=== PATIENT | female | born 1940 | race Caucasian/White ===

== ENCOUNTER → 2021-05-20 16:48 | Outpatient (BNVA) | payer MEDICARE, SELFPAY | PROVIDERS: Visit Provider Family Medicine | DX: Z20.822 Contact with and (suspected) exposure to COVID-19 (principal) | CPT/HCPCS: 87635 ==

== ENCOUNTER → 2022-12-08 16:50 | Outpatient (BNVA) | payer MEDICARE, SELFPAY | PROVIDERS: Visit Provider Nurse Practitioner Family | DX: I10 Essential (primary) hypertension (principal); E53.8 Deficiency of other specified B group vitamins; E55.9 Vitamin D deficiency, unspecified; M71.22 Synovial cyst of popliteal space [Baker], left knee; Z86.39 Personal history of other endocrine, nutritional and metabolic disease; F41.8 Other specified anxiety disorders; Z76.89 Persons encountering health services in other specified circumstances; Z68.28 Body mass index [BMI] 28.0-28.9, adult; Z71.89 Other specified counseling | CPT/HCPCS: 80053; 80061; 82306; 82607; 83036; 84443; 85025 ==

== ENCOUNTER → 2023-05-11 13:32 | Outpatient (BNVA) | payer MEDICARE, SELFPAY | PROVIDERS: PCP Nurse Practitioner Family; Visit Provider Nurse Practitioner Family | DX: N23 Unspecified renal colic (principal) | CPT/HCPCS: 81003 ==

== ENCOUNTER → 2023-08-01 15:00 | Outpatient (BNVA) | payer MEDICARE, SELFPAY | PROVIDERS: PCP Nurse Practitioner Family; Visit Provider Nurse Practitioner Family | DX: I10 Essential (primary) hypertension (principal); E55.9 Vitamin D deficiency, unspecified; E53.8 Deficiency of other specified B group vitamins; Z87.448 Personal history of other diseases of urinary system; L03.90 Cellulitis, unspecified; F41.8 Other specified anxiety disorders | CPT/HCPCS: 80053; 80061; 81000; 82306; 82607; 85025 ==

== ENCOUNTER → 2023-11-29 10:15 | Outpatient (BNVA) | payer MEDICARE, SELFPAY | PROVIDERS: PCP Nurse Practitioner Family; Visit Provider Nurse Practitioner Family | DX: R05.9 Cough, unspecified (principal); J02.9 Acute pharyngitis, unspecified | CPT/HCPCS: 87400; 87426 ==

== ENCOUNTER → 2024-08-07 11:30 | Outpatient (BNVA) | payer MEDICARE, SELFPAY | PROVIDERS: PCP Nurse Practitioner Family; Visit Provider Nurse Practitioner Family | DX: E53.8 Deficiency of other specified B group vitamins (principal); I10 Essential (primary) hypertension; E55.9 Vitamin D deficiency, unspecified; F41.8 Other specified anxiety disorders | CPT/HCPCS: 80053; 80061; 82306; 82607 ==

== ENCOUNTER 2025-01-19 13:22 | Emergency (ER) | payer MEDICARE, SELFPAY ==
[2025-01-19] VITALS (8 sets, daily range): BP systolic 128–157; BP diastolic 75–104; PULSE 83–109; RESP 15–24; O2SAT 94–100; BMI 30.1
--- NOTE | 2025-01-19 13:30 | CTR_ITS ---
PROCEDURE INFORMATION: Exam: CT Maxillofacial Without Contrast Exam date and time: 01/19/2025 2:21 PM Age: 84 years old Clinical indication: Injury or trauma; Fall; Blunt trauma (contusions or hematomas); Forehead; Additional info: Trauamatic facial pain TECHNIQUE: Imaging protocol: Computed tomography of the face without contrast. Radiation optimization: All CT scans at this facility use at least one of these dose optimization techniques: automated exposure control; mA and/or kV adjustment per patient size (includes targeted exams where dose is matched to clinical indication); or iterative reconstruction. COMPARISON: CT head wo con* [id number] 01/19/2025 2:21 PM RADIATION DOSE METRICS: Total DLP (mGy-cm): 628.9 FINDINGS: Paranasal sinuses: No air-fluid levels. Orbital cavities: Orbits are normal. Globes are unremarkable. Bones: No acute fracture. Soft tissues: Right periorbital contusion. CT/CT facial bones wo con* [id number] IMPRESSION: No acute osseous abnormalities.
--- NOTE | 2025-01-19 13:30 | CTR_ITS ---
PROCEDURE INFORMATION: Exam: CT Cervical Spine Without Contrast Exam date and time: 01/19/2025 2:21 PM Age: 84 years old Clinical indication: Injury or trauma; Fall; Blunt trauma TECHNIQUE: Imaging protocol: Computed tomography of the cervical spine without contrast. Radiation optimization: All CT scans at this facility use at least one of these dose optimization techniques: automated exposure control; mA and/or kV adjustment per patient size (includes targeted exams where dose is matched to clinical indication); or iterative reconstruction. COMPARISON: CT chest wo con [id number] 01/19/2025 2:18 PM RADIATION DOSE METRICS: Total DLP (mGy-cm): 138 FINDINGS: Bones: No acute fracture. Normal alignment. No significant disc bulge or herniation. No severe spinal canal stenosis. Lungs: Lung apices are normal. Soft tissues: Unremarkable. CT/CT cervical spin wo con* [id number] IMPRESSION: No acute findings.
--- NOTE | 2025-01-19 13:30 | CTR_ITS ---
PROCEDURE INFORMATION: Exam: CT Chest Without Contrast; Diagnostic Exam date and time: 01/19/2025 2:18 PM Age: 84 years old Clinical indication: Injury or trauma; Fall; Blunt trauma (contusions or hematomas); Additional info: Traumatic chest pain TECHNIQUE: Imaging protocol: Diagnostic computed tomography of the chest without contrast. Radiation optimization: All CT scans at this facility use at least one of these dose optimization techniques: automated exposure control; mA and/or kV adjustment per patient size (includes targeted exams where dose is matched to clinical indication); or iterative reconstruction. COMPARISON: No relevant prior studies available. RADIATION DOSE METRICS: Total DLP (mGy-cm): 489.56 FINDINGS: Lungs: Unremarkable. No consolidation. No masses. Pleural spaces: Unremarkable. No pneumothorax. No pleural effusion. Heart: Unremarkable. No cardiomegaly. No pericardial effusion. Lymph nodes: Unremarkable. No enlarged lymph nodes. Vasculature: Unremarkable. No aortic aneurysm. Bones/joints: Unremarkable. No acute fracture. Soft tissues: Unremarkable. CT/CT chest [facility] [id number] IMPRESSION: No acute traumatic intrathoracic findings.
--- NOTE | 2025-01-19 13:30 | ECG_ITS ---
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
--- NOTE | 2025-01-19 13:30 | CTR_ITS ---
PROCEDURE INFORMATION: Exam: CT Head Without Contrast Exam date and time: 01/19/2025 2:21 PM Age: 84 years old Clinical indication: Injury or trauma; Fall; Blunt trauma (contusions or hematomas); Additional info: Fall, head injury TECHNIQUE: Imaging protocol: Computed tomography of the head without contrast. Radiation optimization: All CT scans at this facility use at least one of these dose optimization techniques: automated exposure control; mA and/or kV adjustment per patient size (includes targeted exams where dose is matched to clinical indication); or iterative reconstruction. COMPARISON: CT facial bones wo con* [id number] 01/19/2025 2:21 PM RADIATION DOSE METRICS: Total DLP (mGy-cm): 1135.2 FINDINGS: Brain: No hemorrhage. No edema. Mild diffuse cerebral atrophy and sequela of chronic small vessel ischemic disease. Focal area of encephalomalacia in the right frontal lobe. No mass effect. Cerebral ventricles: No ventriculomegaly. Paranasal sinuses: Visualized sinuses are unremarkable. No fluid levels. Mastoid air cells: Visualized mastoid air cells are well aerated. Bones: Unremarkable. No acute fracture. Soft tissues: Right periorbital contusion. CT/CT head wo con* [id number] IMPRESSION: No acute intracranial abnormality.
--- NOTE | 2025-01-19 13:32 | W.ED.FALL ---
HPI - Fall General: Chief Complaint: Fall Stated Complaint: syncope; fall Time Seen by Provider: 01/19/25 13:27 History of Present Illness: 84-year-old female with a history of recurrent syncope, asthma and hypertension who presents the emergency room after she tripped and fell in the parking lot. She hit her head. She has a hematoma on the right forehead. Family says that she had loss of consciousness. They tell me that when she does this she will go in and out. She did this today. She is having pain in her central chest. She fell forward and also struck her chest. She is having pain in her right elbow but has good movement with a small abrasion. She is also has pain in her right knee. No vomiting. No altered mental status. No abdominal pain. No pelvic pain. Related Data Home Medications ?Medication ?Instructions ?Recorded ?Confirmed aspirin 81 mg tablet,delayed 81 mg PO DAILY 12/08/22 01/19/25 release cetirizine 10 mg tablet (Zyrtec) 10 mg PO DAILY 12/08/22 01/19/25 albuterol sulfate 2.5 mg/3 mL 2.5 mg inhalation Q6H PRN 01/19/25 01/19/25 (0.083 %) solution for nebulization Shortness Of Breath buspirone 10 mg tablet 10 mg PO BID 01/19/25 01/19/25 escitalopram oxalate 10 mg tablet 10 mg PO DAILY 01/19/25 01/19/25 losartan 25 mg tablet 25 mg PO DAILY 01/19/25 01/19/25 mupirocin 2 % topical ointment 1 applic topical TID PRN Skin 01/19/25 01/19/25 Irritation omeprazole 20 mg capsule,delayed 20 mg PO DAILY 01/19/25 01/19/25 release Previous Rx's ?Medication ?Instructions ?Recorded cane #1 ea 12/21/24 Allergies Allergy/AdvReac Type Severity Reaction Status Date / Time Penicillins Allergy Unknown Unknown Verified 11/19/24 14:08 acetaminophen (From Percocet) Allergy Unconscious Verified 11/19/24 14:08 adhesive tape Allergy ALGY-Rash Verified 11/19/24 14:08 azithromycin (From Zithromax) Allergy Unknown Verified 11/19/24 14:08 cephalexin (From Keflex) Allergy Unknown Verified 11/19/24 14:08 ciprofloxacin (From Cipro) Allergy rash Verified 11/19/24 14:08 codeine Allergy Unknown Verified 11/19/24 14:08 latex Allergy Unknown Verified 11/19/24 14:08 lincomycin (From Lincocin) Allergy Unknown Verified 11/19/24 14:08 mold Allergy Unknown Verified 11/19/24 14:08 oxycodone (From Percocet) Allergy Unconscious Verified 11/19/24 14:08 povidone-iodine (From Allergy Unknown Verified 11/19/24 14:08 Betadine) propoxyphene (From Allergy Unconscious Verified 11/19/24 14:08 Darvocet-N) rofecoxib (From Vioxx) Allergy Unknown Verified 11/19/24 14:08 Sulfa (Sulfonamide Allergy Unknown Verified 11/19/24 14:08 Antibiotics) Tetracyclines Allergy Unknown Verified 11/19/24 14:08 ivp dye Allergy Unknown Uncoded 11/19/24 14:08 Review of Systems Narrative: Constitutional symptoms: Negative except as documented in HPI. Skin symptoms: Negative except as documented in HPI. Eye symptoms: Negative except as documented in HPI. ENMT symptoms: Negative except as documented in HPI. Respiratory symptoms: Negative except as documented in HPI. Cardiovascular symptoms: Negative except as documented in HPI. Gastrointestinal symptoms: Negative except as documented in HPI. Genitourinary symptoms: Negative except as documented in HPI. Musculoskeletal symptoms: Negative except as documented in HPI. Neurologic symptoms: Negative except as documented in HPI. Psychiatric symptoms: Negative except as documented in HPI. Endocrine symptoms: Negative except as documented in HPI. PFSH ED PFSH: Medical History Syncope Asthma Hypertension Social History Smoking and tobacco/nicotine status: never used tobacco/nicotine Alcohol intake: never Physical Exam Narrative: EXAM NARRATIVE: General: Alert, no acute distress. Skin: Warm, dry. Head: Normocephalic, hematoma to right forehead. Neck: Supple, trachea midline. Eye: Extraocular movements are intact. Ears, nose, mouth and throat: mucosa moist. Cardiovascular: Regular, Normal peripheral perfusion. Respiratory: Lungs are clear to auscultation, respirations are non-labored, breath sounds are equal, Symmetrical chest wall expansion. Chest wall pain to palpation. Gastrointestinal: Soft, Nontender, Non distended Musculoskeletal: Normal ROM, no deformity. Pain in right elbow and right knee. Neurological: Alert and oriented, No focal neurological deficit observed. Psychiatric: Cooperative, appropriate mood & affect. Course Vital Signs: Vital signs: Vital Signs Pulse Rate 103 H 01/19/25 13:23 Respiratory Rate 24 H 01/19/25 14:11 Blood Pressure 157/95 01/19/25 13:23 Pulse Oximetry 96 01/19/25 14:11 Oxygen Delivery Me thod Room Air 01/19/25 13:23 MDM - Fall Medical Decision Making X-ray of the right elbow: No acute process. No fractures. No dislocations. This was reviewed and interpreted by myself the emergency room physician. I also reviewed the radiology report. X-ray of the right knee: No acute findings. No fractures. No dislocations. This was reviewed and interpreted by myself the emergency room physician. I also reviewed the radiology report. EKG: Time 1329. Rate 103. Sinus tachycardia, No ST-T changes, no ectopy, normal MT & QRS intervals, This was reviewed and interpreted by myself the ER physician at 1335 CT head: No acute intracranial process. no intracranial hemorrhage, no evidence of infarct. no evidence of acute fracture.This was reviewed and interpreted by myself the ER physician. CT of the facial bones without contrast: No obvious fractures or dislocations. This was reviewed and interpreted by myself the emergency room physician. I also reviewed the radiology report. CT of the cervical spine: No fracture. Good alignment. No step-offs. This was reviewed and interpreted by myself the emergency room physician. I also reviewed the radiologist report. CT of the chest without contrast: No acute cardiopulmonary process. No pneumothorax. No rib fractures. This was reviewed and interpreted by myself the emergency room physician. I also reviewed the radiology report. Lab Review: Laboratory results were reviewed and interpreted by myself the emergency room physician. Lab work is unremarkable. Troponin negative. No leukocytosis. No anemia. No renal failure. I reviewed the patient's medical record. Reexamination: Patient remained stable. No increased work of breathing. No altered mental status. No focal motor deficits. Chest pain has resolved. I spent quite a bit of time talking with daughter and with the patient about the findings. We also discussed that she has been having increased falls and that her primary needs to help her with this. Apparently primary had recommended physical therapy but the patient had decided she did not want to do it. Assessment and plan: Fall Head injury Elbow pain Knee pain Noncardiac chest pain ?IV Tylenol in the emergency room - Discharged home - Discussed plan with patient. Answered any questions. - Evaluation and treatment of this problem were appropriate in the emergency setting. Lab Data 01/19/25 13:50 01/19/25 13:50 Radiology Impressions Cervical Spine CT 01/19/25 13:30 IMPRESSION: No acute findings. Chest CT 01/19/25 13:30 IMPRESSION: No acute traumatic intrathoracic findings. Face CT 01/19/25 13:30 IMPRESSION: No acute osseous abnormalities. Head CT 01/19/25 13:30 IMPRESSION: No acute intracranial abnormality. Elbow X-Ray 01/19/25 13:35 IMPRESSION: No acute findings. Knee X-Ray 01/19/25 13:35 IMPRESSION: Nonacute findings. Laboratory Results WBC 6.97 10^3/uL (3.29-11.43) 01/19/25 13:50 RBC 3.99 10^6/uL (3.85-5.65) 01/19/25 13:50 Hgb 12.40 g/dL (11.27-16.99) 01/19/25 13:50 Hct 36.8 % (36-47) 01/19/25 13:50 MCV 92.2 fl (85-98) 01/19/25 13:50 MCH 31.1 pg (27-33) 01/19/25 13:50 MCHC 33.7 g/dL (30-55) 01/19/25 13:50 RDW 12.4 % (12.1-15.1) 01/19/25 13:50 Plt Count 281 10^3/cmm (157-399) 01/19/25 13:50 MPV 9.9 fL (7.4-10.4) 01/19/25 13:50 Neut % (Auto) 50.8 % 01/19/25 13:50 Lymph % (Auto) 37.0 % 01/19/25 13:50 [place] % (Auto) 9.3 % 01/19/25 13:50 Eos % (Auto) 1.9 % 01/19/25 13:50 Baso % (Auto) 0.7 % 01/19/25 13:50 Neut # (Auto) 3.54 10^3/uL (1.8-7.7) 01/19/25 13:50 Lymph # (Auto) 2.6 10^3/uL (0.8-4.8) 01/19/25 13:50 [place] # (Auto) 0.7 10^3/uL (0.2-0.9) 01/19/25 13:50 Eos # (Auto) 0.1 10^3/uL (0.0-0.8) 01/19/25 13:50 Baso # (Auto) 0.1 10^3/uL (0.0-0.1) 01/19/25 13:50 Nucleated RBC % (auto) 0 % 01/19/25 13:50 Nucleated RBCs # 0.0 /100WBC 01/19/25 13:50 Sodium 140 mmol/L (136-145) 01/19/25 13:50 Potassium 4.1 mmol/L (3.5-5.1) 01/19/25 13:50 Chloride 105 mmol/L (98-107) 01/19/25 13:50 Carbon Dioxide 25 mmol/L (22-29) 01/19/25 13:50 Anion Gap 14.1 (5-19) 01/19/25 13:50 BUN 17 mg/dL (8-23) 01/19/25 13:50 Creatinine 0.8 mg/dL (0.5-0.9) 01/19/25 13:50 GFR Calculation Not Reportable 01/19/25 13:50 Glucose 203 mg/dL (65-115) H 01/19/25 13:50 Calculated Osmolality 297 mOsm/kg (285-295) H 01/19/25 13:50 Lactic Acid 2.2 mmol/L (0.5-2.2) 01/19/25 13:50 Calcium 9.2 mg/dL (8.5-10.5) 01/19/25 13:50 Total Bilirubin 0.3 mg/dL (0.15-1.2) 01/19/25 13:50 AST 19 U/L (0-32) 01/19/25 13:50 ALT 16 U/L (0-33) 01/19/25 13:50 Alkaline Phosphatase 114 U/L (35-105) H 01/19/25 13:50 Troponin T Baseline 10 ng/L (0-10) 01/19/25 13:50 Total Protein 6.6 g/dL (6.6-8.7) 01/19/25 13:50 Albumin 4.2 g/dL (3.5-5.2) 01/19/25 13:50 Globulin 2.4 g/dL (1.3-4.6) 01/19/25 13:50 All radiology interpretation(s) finalized by discharge Discharge Plan Discharge Patient Disposition: Home Clinical Impression: Recurrent falls, Head injury, Non-cardiac chest pain, Elbow pain, Knee pain Condition: Stable Prescriptions: No Action (DME) cane Device See Rx Instructions .Route Qty: 1 0RF Rx Instructions: Please dispense one quad walking cane. cetirizine [Zyrtec] 10 mg tablet 10 mg PO DAILY aspirin 81 mg tablet,delayed release (DR/EC) 81 mg PO DAILY albuterol sulfate 2.5 mg /3 mL (0.083 %) solution for nebulization 2.5 mg inhalation Q6H PRN (Reason: Shortness Of Breath) buspirone 10 mg tablet 10 mg PO BID losartan 25 mg tablet 25 mg PO DAILY omeprazole 20 mg capsule,delayed release(DR/EC) 20 mg PO DAILY mupirocin 2 % ointment 1 applic topical TID PRN (Reason: Skin Irritation) escitalopram oxalate 10 mg tablet 10 mg PO DAILY Discharge Orders: Discharge ED (Routine); Ordered 01/19/25 Ordered By: Meliza Alfonso Referrals: Michelle Flores NP [Primary Care Provider] - Discharge Diet: Usual diet Discharge Activity: Increase activity as tolerated Patient Instructions: Fall Prevention for Older Adults (ED), Opioid Safety, Pain Management Activity Restrictions/Additional Instructions: Thank you for choosing [facility] for your healthcare needs today. Please realize this is an emergency room and that we are providing you with a medical screening exam and this may not be complete and all inclusive of all the testing and or work up that you may need to determine your ailment or severity of your illness. You have been screened and evaluated and felt safe for discharge. Health conditions do change or evolve sometimes and as such it is important that you follow up with your Primary Doctor to be re checked, 3-5 days is a general good time frame for follow up. You are always welcome to return to the ED for re assessment if your symptoms are worsening or you have new concerns Print Language: Citizen Of [place] Coding Level of Care Code ED Laborer [place] for Zander Farrell
--- NOTE | 2025-01-19 13:35 | XRR_ITS ---
PROCEDURE INFORMATION: Exam: XR Right Knee Exam date and time: 01/19/2025 1:50 PM Age: 84 years old Clinical indication: Injury or trauma; Fall; Blunt trauma; Knee; Right; Additional info: Fall, pain TECHNIQUE: Imaging protocol: Radiologic exam of the right knee. Views: 3 views. COMPARISON: No relevant prior studies available. FINDINGS: Bones/joints: No fracture or other acute abnormality. Relatively mild degenerative changes are seen. Soft tissues: Normal. XR/XR knee RT 3V* [id number] IMPRESSION: Nonacute findings.
--- NOTE | 2025-01-19 13:35 | XRR_ITS ---
PROCEDURE INFORMATION: Exam: XR Right Elbow Exam date and time: 01/19/2025 1:55 PM Age: 84 years old Clinical indication: Injury or trauma; Fall; Blunt trauma (contusions or hematomas); Elbow; Right; Additional info: Fall, pain TECHNIQUE: Imaging protocol: Radiologic exam of the right elbow. Views: 3 or more views. COMPARISON: No relevant prior studies available. FINDINGS: Bones/joints: No fracture or other acute abnormality. Mild degenerative change is seen in the proximal radius. Soft tissues: Normal. XR/XR elbow RT min 3V* [id number] IMPRESSION: No acute findings.
[2025-01-19] MEDS: ondansetron 2 mg/ML SDV 2 mL 8 MG IVP (14:05)
[2025-01-19 14:07] LABS: Basophils # 0.1 10^3/uL (0.0-0.1); Basophils % 0.7 %; Eosinophils # 0.1 10^3/uL (0.0-0.8); Eosinophils % 1.9 %; Hematocrit 36.8 % (36-47); Lymphocytes # 2.6 10^3/uL (0.8-4.8); Mean Corpuscular HGB Conc 33.7 g/dL (30-55); Mean Corpuscular Hemoglobin 31.1 pg (27-33); Mean Corpuscular Volume 92.2 fl (85-98); Mean Platelet Volume 9.9 fL (7.4-10.4); Monocytes # 0.7 10^3/uL (0.2-0.9); Monocytes % 9.3 %; Neutrophils # 3.54 10^3/uL (1.8-7.7); Neutrophils % 50.8 %; Nucleated Red Blood Cells % 0 %; Platelet Count 281 10^3/cmm (157-399); Red Blood Count 3.99 10^6/uL (3.85-5.65); Red Cell Distribution Width 12.4 % (12.1-15.1); White Blood Count 6.97 10^3/uL (3.29-11.43)
[2025-01-19] MEDS: morphine 4 mg/mL SDV 1 mL IVP (14:11)
[2025-01-19 14:16] LABS: Alanine Aminotransferase 16 U/L (0-33); Albumin Level 4.2 g/dL (3.5-5.2); Alkaline Phosphatase 114 U/L (35-105); Anion Gap 14.1 (5-19); Aspartate Amino Transferase 19 U/L (0-32); Blood Urea Nitrogen 17 mg/dL (8-23); Calcium 9.2 mg/dL (8.5-10.5); Carbon Dioxide 25 mmol/L (22-29); Chloride 105 mmol/L (98-107); Globulin 2.4 g/dL (1.3-4.6); Glucose 203 mg/dL (65-115); Lactic Sepsis W/Reflex 2.2 mmol/L (0.5-2.2); Osmolality Calculated 297 mOsm/kg (285-295); Potassium 4.1 mmol/L (3.5-5.1); Sodium 140 mmol/L (136-145); Total Bilirubin 0.3 mg/dL (0.15-1.2); Total Protein 6.6 g/dL (6.6-8.7)
[2025-01-19 14:17] LABS: Troponin(5th) Baseline 10 ng/L (0-10)
--- NOTE | 2025-01-19 14:56 | PC.PHAR ---
Pt uses [facility] mail order [facility]
[2025-01-19 15:03] LABS: Reflex Lactate Order REFLEX LACTIC ORDERD
--- NOTE | 2025-01-19 15:30 | ECG_ITS ---
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
[2025-01-19] MEDS: acetaminophen 1,000 MG/100 ML PIGGYBACK 400 MG IV (15:57)
== END 2025-01-19 16:59 | disposition home or self-care (01) ==
PROVIDERS: Emergency Provider Emergency Medicine; PCP Nurse Practitioner Family
DX: S09.90XA Unspecified injury of head, initial encounter (principal); R07.89 Other chest pain; R29.6 Repeated falls; M25.561 Pain in right knee; M25.521 Pain in right elbow; W01.0XXA Fall on same level from slipping, tripping and stumbling without subsequent striking against object, initial encounter; I10 Essential (primary) hypertension
CPT/HCPCS: 70450; 70486; 71250; 72125; 73080; 73562; 80053; 83605; 84484; 85025; 93005; 96365; 96375; 99285; J0131; J2270; J2405